=== PATIENT | female | born 1965 | race Caucasian/White ===

== ENCOUNTER 2017-12-26 00:50 | Emergency (ER) | payer OTHER ==
[~2017-12-26] VITALS: Ht 162.6 cm; Wt 74.4 kg
[2017-12-26 01:14] VITALS: BP 129/80
[2017-12-26] MEDS ORDERED: ONDANSETRON 4 MG ODT PO ONE (01:45)
[2017-12-26 03:13] VITALS: BP 110/57
== END 2017-12-26 03:13 | disposition home or self-care (01) ==
LOC: MED 00:50
DX: R11.2 Nausea with vomiting, unspecified (principal); R19.7 Diarrhea, unspecified; R42 Dizziness and giddiness; M19.90 Unspecified osteoarthritis, unspecified site; F17.200 Nicotine dependence, unspecified, uncomplicated
CPT/HCPCS: 81002; 81025; 99283; S0119

== ENCOUNTER 2018-02-03 05:40 | Inpatient (IN) | payer OTHER ==
[~2018-02-03] VITALS: Ht 162.6 cm; Wt 72.6 kg
--- NOTE | 2018-02-03 05:45 | NUR ---
TO BED # 4 AMBULATORY, REPORT GIVEN TO MUSTAPHA FUNES
--- NOTE | 2018-02-03 05:45 | NUR ---
ASSUMED CARE OF PT AT THIS TIME. C/O SUDDEN ONSET RIGHT RIB PAIN/SOB X 3 DAYS AGO S/P "TURNING HER UPPER BODY TO PICK SOMETHING UP AND INSTANTLY FEELING PAIN." PT IN MILD DISTRESS; HOWEVER, SPEAKS IN FULL SENTENCES. PT IS AAOX4 AND AMBULATED TO BED 4 WITH AN EVEN AND STEADY GAIT; LUNGS CLEAR BL; PATIENT STATES PAIN OF 10/10; VSS; PATIENT POSITIONED FOR COMFORT; HOB ELEVATED; BEDRAILS UP X2; BED DOWN. ER MD MADE AWARE OF PT STATUS. WILL CONTINUE TO MONITOR.
[2018-02-03 05:53] VITALS: BP 106/75
--- NOTE | 2018-02-03 06:33 | NUR ---
X-Ray at bedside.
--- NOTE | 2018-02-03 07:10 | NUR ---
REPORT GIVEN TO MARIN SARABIA TO ASSUME CARE.
[2018-02-03] MEDS ORDERED: methylPREDNISolone SS 125 MG/2 ML VIAL IVP ONE (07:35)
[2018-02-03] MEDS ORDERED: MORPHINE SULFATE 2 MG/ML SYR IVP ONE (07:35)
[2018-02-03] MEDS ORDERED: KETOROLAC 30 MG/ML VIAL IVP ONE (07:35)
--- NOTE | 2018-02-03 08:20 | NUR ---
ADMITTING DX: DIFFICULTY BREATHING HX: DENIES COPD/ASTHMA ALERT AND AWAKE RESPONSIVE EDUCATION PROVIDE TO PATIENT ON HHN THERAPY AND RESPIRATORY DRUG HHN THERAPY GIVEN ORDERED ENCOURAGED PATIENT FOR INTERMITTENT DEEP BREATHING DURING THERAPY TOLERATED WELL WITHOUT INCIDENT
[2018-02-03] MEDS ORDERED: ALBUTEROL SULFATE/IPRATROPIU 3 ML SOL IH ONE ×2 (08:25→08:30)
--- NOTE | 2018-02-03 08:31 | NUR ---
RT AT BEDSIDE AT THIS TIME, RR EVEN AND UNLABORED. WILL CONTINUE TO MONITOR.
[2018-02-03 08:51] LABS: BASOPHILS % (AUTO) 0.5 % (0.0-2.0); EOSINOPHILS # (AUTO) 0.2 K/uL (0-0.4); EOSINOPHILS % (AUTO) 2.8 % (0.0-4.0); HEMATOCRIT 38.2 % (36-48); HEMOGLOBIN 12.9 g/dL (12.0-16.0); LYMPHOCYTES # (AUTO) 2.6 K/uL (2.5-16.5); MEAN CORPUSCULAR HEMOGLOBIN 31 pg (27-31); MEAN CORPUSCULAR HGB CONC 34 g/dL (33-37); MEAN CORPUSCULAR VOLUME 91.5 fL (80-94); MONOCYTES # (AUTO) 0.9 K/uL (0.8-1.0); MONOCYTES % (AUTO) 10.3 % (1.7-9.3); NEUTROPHILS # (AUTO) 5.1 K/uL (1.8-7.7); NEUTROPHILS % (AUTO) 57.4 % (42.2-75.2); PLATELET COUNT (AUTO) 293 K/uL (140-450); RED BLOOD CELL COUNT(AUTO) 4.17 MIL/uL (4.20-5.40); RED CELL DISTRIBUTION WIDTH 13.6 % (11.6-13.7); WHITE BLOOD COUNT (AUTO) 8.9 K/uL (4.8-10.8)
--- NOTE | 2018-02-03 09:16 | NUR ---
PT. RESTING COMFORTABLY IN BED,RR EVEN AND UNLABORED. BED IN LOWEST POSITION. VSS. WILL CONTINUE TO MONITOR.
[2018-02-03 09:25] LABS: ANION GAP 11.2 (8-16); CARBON DIOXIDE 26.6 mmol/L (21-32); CREATININE 0.6 mg/dL (0.6-1.3); POTASSIUM 3.8 mmol/L (3.5-5.1)
[2018-02-03 09:37] LABS: ALBUMIN 3.4 g/dL (3.4-5.0); TOTAL BILIRUBIN 0.3 mg/dL (0.0-1.0)
--- NOTE | 2018-02-03 09:39 | NUR ---
PT. TAKEN TO CT SCAN BY JAELYN VIA FELICIA.
[2018-02-03 10:09] LABS: PROTHROMBIN TIME 9.6 secs (10.8-13.4)
--- NOTE | 2018-02-03 10:20 | NUR ---
PT. RESTING IN BED, RR EVEN AND UNLABORED. VSS. BED IN LOWEST POSITION. WILL CONTINUE TO MONITOR.
[2018-02-03] MEDS ORDERED: IPRATROPIUM 0.02% 0.5 MG/2.5 ML NEBU INH ONE (11:05)
[2018-02-03] MEDS ORDERED: ALBUTEROL 0.083% 2.5 MG/3 ML NEBU INH ONE (11:05)
[2018-02-03] MEDS ORDERED: AZITHROMYCIN 500 MG in DEXTROSE 5% 250 ML IV ONE (11:05)
[2018-02-03] MEDS ORDERED: cefTRIAXone 1,000 MG in DEXT 5% MINI-BAG PLUS 50 ML IV ONE (11:05)
[2018-02-03] MEDS ORDERED: cefTRIAXone 1,000 MG VIAL ONE (11:24)
--- NOTE | 2018-02-03 11:30 | NUR ---
PT. RESTING COMFORTABLY IN BED, RR EVEN AND UNLABORED. VSS . WILL CONTINUE TO MONITOR.
--- NOTE | 2018-02-03 11:37 | NUR ---
RT CALLED FOR FOLLOW UP HHN THERAPY
[2018-02-03] MEDS ORDERED: ALBUTEROL SULFATE/IPRATROPIU 3 ML SOL INH PRN (11:40)
[2018-02-03] MEDS ORDERED: ACETAMINOPHEN 325 MG TAB PO PRN (11:40)
[2018-02-03] MEDS ORDERED: ZOLPIDEM 5 MG TAB PO PRN (11:40)
[2018-02-03] MEDS ORDERED: HYDROcodone/APAP 5/325 MG 1 TAB TAB PO PRN (11:40)
[2018-02-03] MEDS ORDERED: ONDANSETRON 4 MG/2 ML VIAL IVP PRN (11:40)
--- NOTE | 2018-02-03 11:42 | NUR ---
PATIENT OUT OF ROOM IN BATHROOM AT THIS TIME CORPORATE EXECUTIVE TO ATTEMPT HHN THERAPY AT A LATER TIME
--- NOTE | 2018-02-03 11:48 | NUR ---
FOLLOW HHN THERAPY GIVEN ORDERED ENCOURAGED PATIENT FOR DEEP BREATHING DURING THERAPY TOLERATED WELL WITHOUT INCIDENT
--- NOTE | 2018-02-03 12:44 | NUR ---
PT TAKEN TO FLOOR BY MARIN SARABIA
--- NOTE | 2018-02-03 12:50 | NUR ---
Patient will be admitted to care of DR. WHYTE . Admited to MED SURG . Will go to room 120B. Belongings list completed. Report to MARIN ZIMMERMAN .
--- NOTE | 2018-02-03 12:50 | NUR ---
PT ARRIVED ON THE UNIT IN A WHEELCHAIR WITH 2 ER NURSES. PT AMBULATED FROM THE WHEELCHAIR TO BED. STEADY GAIT. PT IS ALERT AND ORIENTED. INTRODUCED MYSELF AND UPDATED THE BOARD. PT HAS AN IV ON L AC 20G SL. ON ROOM AIR. V/S WITHIN NORMAL RANGE. DENIES PAIN AT THIS TIME. SKIN INTACT. PT IS HUNGRY. WILL CHECK ON DIET ORDERS. WILL CONTINUE TO MONITOR PT.
[2018-02-03 13:00] VITALS: BP 111/59
--- NOTE | 2018-02-03 13:00 | NUR ---
MRSA SCREENING DONE. BROWN SOCKS ON. REQUESTED A WARM BLANKET. GIVEN. CALLED FNS TO BRING LATE LUNCH TRAY. WILL CONTINUE TO WITH ADMISSION PROCESS.
[2018-02-03] MEDS ORDERED: AZITHROMYCIN 500 MG in DEXTROSE 5% 250 ML IV SCH (13:17)
--- NOTE | 2018-02-03 15:00 | NUR ---
ADMINISTERED ZITHROMYCIN 250ML. PT TOLERATING WELL. WILL CONTINUE MONITOR PT. Addendum: 02/03/18 at 2015 by Osiris Ramirez RN SCANNED THE ZITHROMYCIN BUT FOR SOME REASON, DID NOT GET SAVED. IT WAS GIVEN.
--- NOTE | 2018-02-03 15:25 | NUR ---
PT C/O PAIN IN HER IV SITE. INFILTRATED. STARTED A NEW IV ON L HAND 22G. 1 ATTEMPT. PT TOLERATED WELL. WILL CONTINUE TO MONITOR PT.
[2018-02-03 16:00] VITALS: BP 110/59
[2018-02-03] MEDS ORDERED: ALUMINUM HYD/MAG/SIMETHICONE 30 ML UDC PO PRN (16:40)
[2018-02-03] MEDS ORDERED: PANTOPRAZOLE 40 MG INJ VIAL IVP SCH (16:43)
--- NOTE | 2018-02-03 17:10 | NUR ---
DR WHYTE IS HERE TO ASSES PT.
--- NOTE | 2018-02-03 17:45 | NUR ---
ADMINISTERED MYLANTA AND PROTONIX FOR GASTRIC PAIN. PT TOLERATED WELL.
--- NOTE | 2018-02-03 19:25 | NUR ---
ENDORSED PT TO THE ELECTRONIC SALES AND SERVICE TECHNICIAN NURSE AT BEDSIDE FOR CONTINUITY OF CARE. PT IS IN STABLE CONDITION, BOYFRIEND AT BEDSIDE.
--- NOTE | 2018-02-03 19:25 | NUR ---
RECEIVED BEDSIDE REPORT FROM RN ELSIE, PT AWAKE IN BED NO SIGNS OF DISTRESS. IV IN LEFT H 22 G SL. ON RA, ABLE TO FOLLOW COMMANDS. CALL LIGHT WITHIN REACH. EXPLAINED PLAN OF CARE, UPDATED BOARD. WILL CONTINUE TO MONITOR.
--- NOTE | 2018-02-03 21:56 | NUR ---
PT C/O HAVING PROBLEMS SLEEPING, MEDICATED WITH AMBIEN ACCORDING TO MD ORDER.
--- NOTE | 2018-02-03 23:00 | NUR ---
PT RESTING IN BED, NO SIGNS OF DISTRESS, V/S TAKEN ALL WITHIN BASELINE, WILL CONTINUE TO MONITOR.
[2018-02-04] VITALS: BP 109/52
--- NOTE | 2018-02-04 01:30 | NUR ---
PT RESTING IN BED, ASLEEP, NO SIGNS OF DISTRESS. WILL CONTINUE TO MONITOR.
--- NOTE | 2018-02-04 07:32 | NUR ---
ENDORSED PT TO DAY SHIFT NURSE. PT STABLE.
--- NOTE | 2018-02-04 07:33 | NUR ---
RECEIVED PT FROM THE BONDACTOR MACHINE OPERATOR NURSE AT BEDSIDE FOR CONTINUITY OF CARE. PT IS AWAKE AND ORIENTED. INTRODUCED MYSELF AND UPDATED THE BOARD. PT IS ON ROOM AIR. IV ON L HAND 22G SL. PT V/S WITHIN NORMAL RANGE. DENIES ANY PAIN. SKIN INTACT. WILL CONTINUE TO MONITOR PT.
--- NOTE | 2018-02-04 07:49 | NUR ---
NO TREATMENT INDICATED AT THIS TIME. BREATH SOUNDS WERE CLEAR, HEART RATE WAS 56 AND PATIENT WAS SATING 100% ON [place] AIR.
[2018-02-04 08:00] VITALS: BP 106/55
--- NOTE | 2018-02-04 08:50 | NUR ---
PATIENT HAS BEEN SCREENED AND CATEGORIZED MODERATE NUTRITION RISK. PATIENT WILL BE SEEN WITHIN 3-5 DAYS OF ADMISSION. 02/06/18 02/08/[address]
[2018-02-04] MEDS ORDERED: PANTOPRAZOLE 40 MG INJ VIAL IVP SCH (09:00)
[2018-02-04] MEDS ORDERED: AZITHROMYCIN 250 MG TAB PO SCH (09:00)
[2018-02-04] MEDS ORDERED: predniSONE 20 MG TAB PO SCH (09:00)
[2018-02-04] MEDS ORDERED: DOCUSATE SODIUM 100 MG GELCAP PO SCH (09:00)
--- NOTE | 2018-02-04 09:41 | NUR ---
ADMINISTERED MORNING MEDS. PT TOLERATED WELL. NO COMPLAINTS AT THIS TIME. WILL CONTINUE TO MONITOR PT.
--- NOTE | 2018-02-04 11:30 | NUR ---
PT SLEEPING. NO SIGNS OF DISTRESS. WILL CONTINUE TO MONITOR PT.
[2018-02-04] MEDS ORDERED: AZIT250T3 PO (14:26)
[2018-02-04] MEDS ORDERED: AMOX500C25 PO (14:26)
--- NOTE | 2018-02-04 14:35 | NUR ---
D/C INSTRUCTIONS GIVEN. PT VERBALIZED UNDERSTANDING. PT TO MANUFACTURING SCHEDULER RX AT PHARMACY. REMOVED IV,CANNULA INTACT. NO BLEEDING NOTED. REMOVED ALL ID BANDS. PT ALREADY HAD HER BELONGINGS ALL GATHERED. WILL GET DRESSED AND LET ME KNOW WHEN SHE IS READY TO GO. WHEELCHAIR ON STANDBY.
--- NOTE | 2018-02-04 14:41 | NUR ---
CM NOTE ADMISSION CHART REVIEW DONE. INITIAL REVIEW FAXED TO [facility] [phone] ROSAL[place] # [phone]
--- NOTE | 2018-02-04 15:45 | NUR ---
WHEELED PT OUT ON THE WHEELCHAIR, ACCOMPANIED BY FRIEND. PT HAS PERSONAL BELONGINGS WITH PT. PT IN STABLE CONDITION.
== END 2018-02-04 15:45 | disposition home or self-care (01) | DRG 139 ==
LOC: MED 05:40 → EDBEDREQSVC 11:50 → MTU 12:02
PROVIDERS: ADMIT Hospitalist; ATTEND Hospitalist
DX: J15.9 Unspecified bacterial pneumonia (principal); J96.00 Acute respiratory failure, unspecified whether with hypoxia or hypercapnia; J44.0 Chronic obstructive pulmonary disease with (acute) lower respiratory infection; J44.1 Chronic obstructive pulmonary disease with (acute) exacerbation; K21.9 Gastro-esophageal reflux disease without esophagitis; F17.200 Nicotine dependence, unspecified, uncomplicated; I10 Essential (primary) hypertension; M17.12 Unilateral primary osteoarthritis, left knee; M19.072 Primary osteoarthritis, left ankle and foot; Z88.6 Allergy status to analgesic agent
CPT/HCPCS: 36415; 71045; 71275; 80053; 82550; 83605; 83880; 84484; 85025; 85379; 85610; 85730; 87040; 87081; 93005; 94640; 96365; 96375; 99285; C9113; J0456; J0696; J1644; J1885; J2270; J2930; J7030; J7060; J7512; J7613; J7620; J7644; Q0092; Q9967